=== PATIENT | female | born 1995 | race Two or more races ===

== ENCOUNTER 2019-12-27 05:00 | Emergency (ER) | payer OTHER ==
[~2019-12-27] VITALS: Ht 154.9 cm; Wt 69.1 kg
[2019-12-27] MEDS ORDERED: cefTRIAXone SOD 1,000 MG VL IM ONE (06:30)
[2019-12-27] MEDS ORDERED: ACETAMINOPHEN 325 MG TAB PO ONE (06:30)
[2019-12-27 06:49] VITALS: BP 130/88
== END 2019-12-27 07:04 | disposition home or self-care (01) ==
LOC: ER 05:00
DX: O26.893 Other specified pregnancy related conditions, third trimester (principal); K04.7 Periapical abscess without sinus; Z3A.33 33 weeks gestation of pregnancy
CPT/HCPCS: 96372; 99283; J0696